=== PATIENT | female | born 1990 | race Caucasian/White ===

== ENCOUNTER 2016-08-22 13:27 | Emergency (ER) | payer MEDICAID ==
[~2016-08-22] VITALS: Ht 162.6 cm; Wt 74.8 kg
[~2016-08-22 13:27] MED LIST: ACET-789 PO; IBP600T1 PO; IBUP-1773 PO; PREN1TAB39 PO; PREN1TAB86 PO
[2016-08-22] MEDS ORDERED: NS IV 1000 ML 1,000 ML IV ONE (13:49)
[2016-08-22] MEDS ORDERED: PROMETHAZINE INJ 25 MG/ML (PHENERGAN) AMP IVP ONE (14:00)
[2016-08-22] MEDS ORDERED: fentaNYL INJECTION 100 MCG/2 ML AMP IVP ONE (14:00)
[2016-08-22] MEDS ORDERED: diphenhydrAMINE 50 MG/ML INJ (BENADRYL) IVP ONE (14:00)
--- NOTE | 2016-08-22 14:24 | ED Headache ---
General Chief Complaint: Head/Cervical Problems Stated Complaint: HEADACHE Source: patient Exam Limitations: no limitations History of Present Illness Time seen by provider: 13:47 Initial Comments This 25-year-old young lady presents to emergency room with complaint of severe headache in the frontal region and at the nape of the neck. Associated symptoms include nausea and vomiting and some light and sound sensitivity. She denies any vision changes. No fever or other signs or symptoms of acute infectious illness. She reports having a breast augmentation performed last which is healing up as expected. She has no symptoms at the surgical site. She has been taking hydrocodone and Flexeril over the past week for postoperative pain. She took one hydrocodone this morning but vomited shortly after. She then took Tylenol. She reports her pain is 9/10. This is the "worst headache I've ever had". She does not have a history of recurrent headaches or migraines. She is on control and states her last period was one week ago. She denies any focal neurologic deficits. Allergies and Home Medications Allergies Coded Allergies: No Known Drug Allergies (Unverified , 10/24/10) Home Medications Ibuprofen 600 Mg Tablet, 600 MG PO Q6H PRN for PAIN, #30 Prescribed by: HAZEL GUTIERREZ on 02/10/16 1717 Ondansetron 4 Mg Tab.rapdis, 4 MG SL Q4H PRN for NAUSEA/VOMITING-1ST LINE, #10 Prescribed by: DAE ASH on 08/22/16 1532 Vit W-Ca,Fe,FA(<1 mg) 1 Each Tablet, 1 EACH PO DAILY, (Reported) Constitutional: no symptoms reported Eyes: No Symptoms Reported Ears, Nose, Mouth, Throat: no symptoms reported Respiratory: no symptoms reported Cardiovascular: no symptoms reported Gastrointestinal: see HPI Genitourinary: no symptoms reported : No Musculoskeletal: no symptoms reported Skin: no symptoms reported Psychiatric/Neurological: See HPI Past Ngkrzhp-Iqqmdp-Cxqpce Hx Patient Social History Recent Foreign Travel: No Contact w/Someone Who Travel: No Recent Hopitalizations: No Seasonal Allergies Seasonal Allergies: No Surgeries HX Surgeries: Yes (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) Surgeries: Breast (breast augmentation with implants) Respiratory Hx Respiratory Disorders: No Cardiovascular Hx Cardiac Disorders: Yes (childhood murmur) Neurological Hx Neurological Disorders: No Reproductive System Hx Reproductive Disorders: No Genitourinary Hx Genitourinary Disorders: No Gastrointestinal Hx Gastrointestinal Disorders: Yes Musculoskeletal Hx Musculoskeletal Disorders: No Endocrine Hx Endocrine Disorders: No HEENT HX ENT Disorders: No Cancer Hx Cancer: No Psychosocial Hx Psychiatric Problems: No Integumentary HX Skin/Integumentary Disorder: No Blood Transfusions Hx Blood Disorders: No Family Medical History Significant Family History: Cancer, Diabetes Family Medial History: Congenital heart disease 19 MOTHER Diabetes mellitus 19 MOTHER Physical Exam Vital Signs Vital Sign - Last 12Hours 08/22/16 13:55 Temp 96.0 Pulse 70 Resp 16 B/P (MAP) 129/98 Pulse Ox 100 O2 Delivery Room Air Capillary Refill : General Appearance: WD/WN, no apparent distress HEENT: PERRL/EOMI, normal ENT inspection, TMs normal, pharynx normal Neck: supple, normal inspection Cardiovascular: regular rate, rhythm, no edema, no murmur Respiratory: lungs clear, normal breath sounds, no respiratory distress, no accessory muscle use Gastrointestinal: normal bowel sounds, non tender, soft Extremities: normal inspection, no pedal edema Psychiatric: alert, oriented x 3 Crainal Nerves: normal hearing, normal speech, PERRL Coordination/Gait: normal finger to nose, normal gait Motor/Sensory: no motor deficit, no sensory deficit Skin: normal color, warm/dry Progress/Results/Core Measures Results/Orders Lab Results Laboratory Tests Test 08/22/16 14:10 08/22/16 14:50 Range/Units White Blood Count 9.4 4.3-11.0 10^3/uL Red Blood Count 4.89 4.35-5.85 10^6/uL Hemoglobin 14.6 11.5-16.0 G/DL Hematocrit 43 35-52 % Mean Corpuscular Volume 88 80-99 FL Mean Corpuscular Hemoglobin 30 25-34 PG Mean Corpuscular Hemoglobin Concent 34 32-36 G/DL Red Cell Distribution Width 14.7 H 10.0-14.5 % Platelet Count 250 130-400 10^3/uL Mean Platelet Volume 10.3 7.4-10.4 FL Neutrophils (%) (Auto) 81 H 42-75 % Lymphocytes (%) (Auto) 15 12-44 % Monocytes (%) (Auto) 3 0-12 % Eosinophils (%) (Auto) 0 0-10 % Basophils (%) (Auto) 0 0-10 % Neutrophils # (Auto) 7.6 1.8-7.8 X 10^3 Lymphocytes # (Auto) 1.4 1.0-4.0 X 10^3 Monocytes # (Auto) 0.3 0.0-1.0 X 10^3 Eosinophils # (Auto) 0.0 0.0-0.3 10^3/uL Basophils # (Auto) 0.0 0.0-0.1 10^3/uL Sodium Level 139 135-145 MMOL/L Potassium Level 4.3 3.6-5.0 MMOL/L Chloride Level 103 98-107 MMOL/L Carbon Dioxide Level 27 21-32 MMOL/L Anion Gap 9 5-14 MMOL/L Blood Urea Nitrogen 9 7-18 MG/DL Creatinine 0.71 0.60-1.30 MG/DL Estimat Glomerular Filtration Rate > 60 BUN/Creatinine Ratio 13 Glucose Level 95 70-105 MG/DL Calcium Level 10.1 8.5-10.1 MG/DL Magnesium Level 2.1 1.8-2.4 MG/DL Total Bilirubin 0.3 0.1-1.0 MG/DL Aspartate Amino Transf (AST/SGOT) 30 5-34 U/L Alanine Aminotransferase (ALT/SGPT) 29 0-55 U/L Alkaline Phosphatase 77 40-136 U/L Total Protein 7.6 6.4-8.2 G/DL Albumin 4.3 3.2-4.5 G/DL Serum Test, Qualitative NEGATIVE NEGATIVE Urine Color YELLOW Urine Clarity SLIGHTLY CLOUDY Urine pH 8 5-9 Urine Specific [place] 1.010 L 1.016-1.022 Urine Protein NEGATIVE NEGATIVE Urine Glucose (UA) NEGATIVE NEGATIVE Urine Ketones NEGATIVE NEGATIVE Urine Nitrite NEGATIVE NEGATIVE Urine Bilirubin NEGATIVE NEGATIVE Urine Urobilinogen NORMAL NORMAL MG/DL Urine Leukocyte Esterase NEGATIVE NEGATIVE Urine RBC (Auto) NEGATIVE NEGATIVE Urine RBC NONE /HPF Urine WBC NONE /HPF Urine Squamous Epithelial Cells 5-10 /HPF Urine Crystals NONE /LPF Urine Bacteria NEGATIVE /HPF Urine Casts NONE /LPF Urine Mucus NEGATIVE /LPF Urine Culture Indicated NO My Orders Orders - DAE JUNIOR MD Cbc With Automated Diff (08/22/16 13:49) Comprehensive Metabolic Panel (08/22/16 13:49) Hcg,Qualitative Serum (08/22/16 13:49) Magnesium (08/22/16 13:49) Ua Culture If Indicated (08/22/16 13:49) Saline Lock/Iv-Start (08/22/16 13:49) Ct Head Wo (08/22/16 13:49) Ns Iv 1000 Ml (Sodium Chloride 0.9%) (08/22/16 13:49) Promethazine Injection (Phenergan Injec (08/22/16 14:00) Diphenhydramine Injection (Benadryl Inje (08/22/16 14:00) Fentanyl Injection (Sublimaze Injection (08/22/16 14:00) Ketorolac Injection (Toradol Injection) (08/22/16 15:30) Ondansetron Injection (Zofran Injectio (08/22/16 15:30) Medications Given in ED Current Medications Medications Dose Ordered Sig/Zay Route Start Time Stop Time Status Last Admin Dose Admin Diphenhydramine HCl 12.5 mg ONCE ONCE IVP 08/22/16 14:00 08/22/16 14:01 DC 08/22/16 14:09 12.5 MG Fentanyl Citrate 50 mcg ONCE ONCE IVP 08/22/16 14:00 08/22/16 14:01 DC 08/22/16 14:08 50 MCG Ketorolac Tromethamine 30 mg ONCE ONCE IVP 08/22/16 15:30 08/22/16 15:31 DC 08/22/16 15:26 30 MG Ondansetron HCl 8 mg ONCE ONCE IVP 08/22/16 15:30 08/22/16 15:31 DC 08/22/16 15:26 8 MG Promethazine HCl 12.5 mg ONCE ONCE IVP 08/22/16 14:00 08/22/16 14:01 DC 08/22/16 14:09 12.5 MG Sodium Chloride 1,000 ml @ 0 mls/hr Q0M ONCE IV 08/22/16 13:49 08/22/16 13:52 DC 08/22/16 14:10 1,000 MLS/HR Vital Signs/I&O Vital Sign - Last 12Hours 08/22/16 08/22/16 08/22/16 13:55 14:08 15:26 Temp 96.0 98.3 98.3 Pulse 70 Resp 16 B/P (MAP) 129/98 Pulse Ox 100 O2 Delivery Room Air Progress Note #1: Time: 14:24 Progress Note Patient is receiving fentanyl, Phenergan, and promethazine as initial treatment. Serum test is being performed. If negative, CT of the head will be performed. Progress Note #2: Time: 15:[address] head and labs are unremarkable. Patient reports her pain and nausea are rebounding. Zofran and Toradol are being administered. Progress Note #3: Time: 16:03 Progress Note Patient had significant improvement with Zofran and Toradol. She was tolerating oral water without difficulty. Diagnostic Imaging Diagonstic Imaging: CT Plain Films/CT/US/NM/MRI: head Comments CT head viewed by me and report reviewed. See report below: NAME: ANNIE GOLDBERG [facility] REC#: [id number] PT STATUS: REG ER : 1990 PHYSICIAN: DAE JUNIOR MD ADMIT DATE: 08/22/16/ER Signed Date of Exam: 08/22/16 CT HEAD WO PROCEDURE: CT head without contrast. TECHNIQUE: Multiple contiguous axial images were obtained through the brain without the use of intravenous contrast. INDICATION: Frontal and posterior headache. FINDINGS: There is no intracranial hemorrhage, edema, or mass effect. The brain parenchyma and bhatia/white matter differentiation are preserved. No hydrocephalus. No extra-axial fluid collection is seen. The calvarium, paranasal sinuses, and visualized portions of the orbits appear grossly unremarkable. IMPRESSION: Unremarkable exam. Dictated by: Dictated on workstation # [id number] Dict: 08/22/16 1500 Trans: 08/22/16 1512 Interpreted by: PEPE LOFTON MD Electronically signed by: PEPE OLFTON MD 08/22/16 1512 Departure Impression Impression: Primary Impression: Acute headache Qualified Codes: R51 - Headache Additional Impression: Nausea and vomiting Qualified Codes: R11.2 - Nausea with vomiting, unspecified Disposition: 01 HOME, SELF-CARE Condition: Improved Departure-Patient Inst. Referrals: JOHNNY HERNANDEZ MD (PCP/Family) Primary Care Physician Patient Instructions: Headache, Adult Add. Discharge Instructions: Drink plenty of clear liquids. Gradually advance your diet with small quantities of bland food as tolerated. You may take ibuprofen up to 600 mg every 6 hours as needed for pain. Add your hydrocodone as prescribed for pain not controlled by ibuprofen. Dissolve the Zofran (ondansetron) under the tongue every 4 hours as needed for nausea and vomiting. Return to emergency room if symptoms worsen. Rest in a quiet, calm, dark environment for the remainder of the day. All discharge instructions reviewed with patient and/or family. Voiced understanding. Scripts Ondansetron (Zofran Odt) 4 Mg Tab.rapdis 4 MG SL Q4H Y for NAUSEA/VOMITING-1ST LINE, #10 TAB Prov: DAE JUNIOR MD 08/22/16 DAE JUNIOR MD August 22, 2016 14:24
[2016-08-22 14:25] LABS: BASOPHILS % (AUTO) 0 % (0-10); EOSINOPHILS % (AUTO) 0 % (0-10); LYMPHOCYTES # (AUTO) 1.4 X 10^3 (1.0-4.0); LYMPHOCYTES % (AUTO) 15 % (12-44); MEAN CORPUSCULAR HEMOGLOBIN 30 PG (25-34); MEAN CORPUSCULAR HGB CONC 34 G/DL (32-36); MEAN CORPUSCULAR VOLUME 88 FL (80-99); MEAN PLATELET VOLUME 10.3 FL (7.4-10.4); MONOCYTES # (AUTO) 0.3 X 10^3 (0.0-1.0); MONOCYTES % (AUTO) 3 % (0-12); NEUTROPHILS # (AUTO) 7.6 X 10^3 (1.8-7.8); NEUTROPHILS % (AUTO) 81 % (42-75); PLATELET COUNT 250 10^3/uL (130-400); RED BLOOD COUNT 4.89 10^6/uL (4.35-5.85); RED CELL DISTRIBUTION WIDTH 14.7 % (10.0-14.5); WHITE BLOOD COUNT 9.4 10^3/uL (4.3-11.0)
[2016-08-22 14:46] LABS: ALANINE AMINOTRANSFERASE 29 U/L (0-55); ALBUMIN 4.3 G/DL (3.2-4.5); ANION GAP 9 MMOL/L (5-14); ASPARTATE AMINO TRANSFERASE 30 U/L (5-34); BILIRUBIN,TOTAL 0.3 MG/DL (0.1-1.0); BLOOD UREA NITROGEN 9 MG/DL (7-18); BUN/CREATININE RATIO 13; CALCIUM 10.1 MG/DL (8.5-10.1); CARBON DIOXIDE 27 MMOL/L (21-32); CHLORIDE 103 MMOL/L (98-107); CREATININE SERUM 0.71 MG/DL (0.60-1.30); GFR ESTIMATED > 60; GLUCOSE 95 MG/DL (70-105); MAGNESIUM 2.1 MG/DL (1.8-2.4); POTASSIUM 4.3 MMOL/L (3.6-5.0); SODIUM 139 MMOL/L (135-145); TOTAL PROTEIN 7.6 G/DL (6.4-8.2)
[2016-08-22 15:01] LABS: BILIRUBIN,URINE NEGATIVE (NEGATIVE); KETONES,URINE NEGATIVE (NEGATIVE); LEUKOCYTE ESTERASE ,URINE NEGATIVE (NEGATIVE); NITRITE,URINE NEGATIVE (NEGATIVE); PH,URINE 8 (5-9); PROTEIN,URINE NEGATIVE (NEGATIVE); UROBILINOGEN,URINE NORMAL (NORMAL)
--- NOTE | 2016-08-22 15:11 | Diagnostic Imaging Report ---
PROCEDURE: CT head without contrast. TECHNIQUE: Multiple contiguous axial images were obtained through the brain without the use of intravenous contrast. INDICATION: Frontal and posterior headache. FINDINGS: There is no intracranial hemorrhage, edema, or mass effect. The brain parenchyma and bhatia/white matter differentiation are preserved. No hydrocephalus. No extra-axial fluid collection is seen. The calvarium, paranasal sinuses, and visualized portions of the orbits appear grossly unremarkable. IMPRESSION: Unremarkable exam. Dictated by: Dictated on workstation # [id number]
[2016-08-22] MEDS ORDERED: KETOROLAC 30 MG/ML VIAL IVP ONE (15:30)
[2016-08-22] MEDS ORDERED: ONDANSETRON 4 MG/2 ML (SDV) Z0FRAN IVP ONE (15:30)
[2016-08-22] MEDS ORDERED: ONDA4TAB8 SL (15:32)
[2016-08-22 16:06] VITALS: BP 124/88
== END 2016-08-22 16:06 | disposition home or self-care (01) ==
LOC: EDUNIT# 13:27 → ER 13:31
DX: R51 Headache (principal); R11.2 Nausea with vomiting, unspecified; Z98.82 Breast implant status; Z98.890 Other specified postprocedural states
CPT/HCPCS: 36415; 70450; 80053; 81000; 83735; 84703; 85025; 96361; 96374; 96375

== ENCOUNTER 2017-04-03 15:39 | Emergency (ER) | payer MEDICAID ==
[~2017-04-03] VITALS: Ht 162.6 cm; Wt 72.6 kg
[~2017-04-03 15:39] MED LIST changes: +ONDA4TAB8 SL
[2017-04-03] MEDS ORDERED: AMOX500C2 PO ×2 (16:47→16:49)
[2017-04-03] MEDS ORDERED: D-ME118S33 PO (16:47)
--- NOTE | 2017-04-03 16:47 | ED Cough/URI ---
General Chief Complaint: Cough/Cold/Flu Symptoms Stated Complaint: CONGESTION,LT EAR PAIN Nursing Triage Note: PT CO OF OF HAVING COLD SYMPTOMS COUGH L SIDED EAR ACHE, SINUS PRESSURE, STATES TEETH HURT. DENIES FEVER. Source: patient Exam Limitations: no limitations History of Present Illness Time seen by provider: 16:43 Initial Comments To ER with left earache for 3 days, nasal congestion, upper dental pressure and pain affecting all of her maxillary teeth. No fever. Nonproductive cough. Timing/Duration: getting worse Severity/Quality: dry cough Associated Symptoms: cough, facial pain, fever/chills Allergies and Home Medications Allergies Coded Allergies: No Known Drug Allergies (Unverified , 10/24/10) Home Medications Amoxicillin 500 Mg Capsule, 1,000 MG PO TID, #21 Prescribed by: ASHKAN ORR on 04/03/17 1647 D-Methorphan Hb/P-Epd HCl/Bpm 118 Ml Syrup, 5 ML PO Q6H PRN for COUGH, #120 Prescribed by: ASHKAN ORR on 04/03/17 1647 Ibuprofen 600 Mg Tablet, 600 MG PO Q6H PRN for PAIN, #30 Prescribed by: HAZEL GUTIERREZ on 02/10/16 1717 Ondansetron 4 Mg Tab.rapdis, 4 MG SL Q4H PRN for NAUSEA/VOMITING-1ST LINE, #10 Prescribed by: DAE ASH on 08/22/16 1532 Vit W-Ca,Fe,FA(<1 mg) 1 Each Tablet, 1 EACH PO DAILY, (Reported) Constitutional: see HPI, No chills, No fever EENTM: see HPI, nose congestion Respiratory: see HPI, cough, No short of breath, No wheezing Cardiovascular: no symptoms reported Genitourinary: no symptoms reported Musculoskeletal: no symptoms reported Skin: no symptoms reported Psychiatric/Neurological: No Symptoms Reported Hematologic/Lymphatic: No Symptoms Reported Past Sqlhnxz-Btccex-Rhyaxo Hx Patient Social History Alcohol Use: Denies Use Recreational Drug Use: No Smoking Status: Never a Smoker Recent Foreign Travel: No Contact w/Someone Who Travel: No Recent Infectious Disease Expo: No Recent Hopitalizations: No Physical Abuse: No Sexual Abuse: No Seasonal Allergies Seasonal Allergies: No Surgeries History of Surgeries: Yes (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, BREAST AUGMENTATION) Surgeries: Breast Respiratory History of Respiratory Disorde: No Cardiovascular History of Cardiac Disorders: Yes (childhood murmur) Neurological History of Neurological Disord: No Reproductive System Hx Reproductive Disorders: No Gastrointestinal History of Gastrointestinal Di: Yes Musculoskeletal History of Musculoskeletal Dis: No Endocrine History of Endocrine Disorders: No Cancer History of Cancer: No Psychosocial History of Psychiatric Problem: No Suicide Risk Score: 0 Integumentary History of Skin or Integumenta: No Blood Transfusions History of Blood Disorders: No Family Medical History Significant Family History: Cancer, Diabetes Family Medial History: Congenital heart disease 19 MOTHER Diabetes mellitus 19 MOTHER Physical Exam Vital Signs Vital Sign - Last 12Hours 04/03/17 16:20 Temp 98.9 Pulse 73 Resp 18 B/P (MAP) 104/57 (73) Pulse Ox 97 Capillary Refill : Less Than 3 Seconds General Appearance: WD/WN, no apparent distress Eyes: Bilateral Eye Normal Inspection, Bilateral Eye PERRL, Bilateral Eye EOMI HEENT: PERRL/EOMI, normal ENT inspection, TMs normal, TM abnormal (L) ( erythematous and bulging), pharyngeal erythema (cobblestoning) Neck: non-tender, full range of motion Respiratory: normal breath sounds, no respiratory distress, no accessory muscle use Cardiovascular: regular rate, rhythm, no murmur Gastrointestinal: normal bowel sounds, non tender, soft Neurologic/Psychiatric: alert, normal mood/affect, oriented x 3 Skin: normal color, warm/dry Progress/Results/Core Measures Suspected Sepsis Recent Fever Within 48 Hours: No Infection Criteria Present: None New/Unexplained Altered Menta: No Sepsis Screen: No Definite Risk Sepsis Diagnosis: SIRS Temperature:98.9 Pulse: 73 Respiratory Rate: 18 Blood Pressure 104 /57 Mean: 73 Results/Orders Vital Signs/I&O Vital Sign - Last 12Hours 04/03/17 16:20 Temp 98.9 Pulse 73 Resp 18 B/P (MAP) 104/57 (73) Pulse Ox 97 Capillary Refill : Less Than 3 Seconds Blood Pressure Mean: 73 Departure Impression Impression: Primary Impression: Sinusitis Additional Impression: Left otitis media Disposition: 01 HOME, SELF-CARE Condition: Stable Departure-Patient Inst. Decision time for Depature: 16:45 Referrals: JOHNNY HERNANDEZ MD (PCP/Family) Primary Care Physician Patient Instructions: Ear Infections (Otitis Media), Sinusitis in Adults Add. Discharge Instructions: 1. Medication as directed 2. Return to ER for any concerns 3. All discharge instructions reviewed with patient and/or family. Voiced understanding. Scripts Amoxicillin (Amoxicillin) 500 Mg Capsule 500 MG PO TID, #21 CAP . Prov: ASHKAN ORR APRN 04/03/17 D-Methorphan Hb/P-Epd HCl/Bpm (Bromfed Dm Cough Syrup) 118 Ml Syrup 5 ML PO Q6H Y for COUGH, #120 ML Prov: ASHKAN ORR APRN 04/03/17 Work/School Note: Work Release Form Date Seen in the Emergency Department: Apr 03, 2017 Return to Work: Apr 05, 2017 ASHKAN ORR APRN Apr 03, 2017 16:47
[2017-04-03 16:52] VITALS: BP 104/57
== END 2017-04-03 16:52 | disposition home or self-care (01) ==
LOC: EDUNIT# 15:39 → ER 15:41
DX: H66.92 Otitis media, unspecified, left ear (principal); J32.9 Chronic sinusitis, unspecified
CPT/HCPCS: 99282

== ENCOUNTER 2019-02-28 22:15 | Emergency (ER) | payer MEDICAID ==
[~2019-02-28] VITALS: Ht 162 cm; Wt 68.0 kg
[~2019-02-28 22:15] MED LIST changes: +AMOX500C2 PO; +D-ME118S33 PO
[2019-02-28 22:38] LABS: BILIRUBIN,URINE NEGATIVE (NEGATIVE); CLARITY,URINE SL CLOUDY; COLOR,URINE YELLOW; GLUCOSE, URINE (UA) NEGATIVE (NEGATIVE); KETONES,URINE NEGATIVE (NEGATIVE); LEUKOCYTE ESTERASE ,URINE 1+ (NEGATIVE); NITRITE,URINE NEGATIVE (NEGATIVE); PH,URINE 6.5 (5-9); PROTEIN,URINE TRACE (NEGATIVE)
[2019-02-28 23:20] LABS: BACTERIA,URINE FEW /HPF; RBC,URINE TNTC /HPF; WBC,URINE TNTC /HPF
[2019-02-28] MEDS ORDERED: NS IV 1000 ML 1,000 ML IV ONE (23:35)
[2019-02-28 23:42] LABS: BASOPHILS % (AUTO) 0 % (0-10); EOSINOPHILS # (AUTO) 0.2 10^3/uL (0.0-0.3); EOSINOPHILS % (AUTO) 2 % (0-10); HEMATOCRIT 41 % (35-52); HEMOGLOBIN 14.1 G/DL (11.5-16.0); LYMPHOCYTES # (AUTO) 2.4 X 10^3 (1.0-4.0); LYMPHOCYTES % (AUTO) 28 % (12-44); MEAN CORPUSCULAR HEMOGLOBIN 33 PG (25-34); MEAN CORPUSCULAR HGB CONC 34 G/DL (32-36); MEAN CORPUSCULAR VOLUME 96 FL (80-99); MEAN PLATELET VOLUME 9.9 FL (7.4-10.4); MONOCYTES # (AUTO) 0.4 X 10^3 (0.0-1.0); MONOCYTES % (AUTO) 5 % (0-12); NEUTROPHILS # (AUTO) 5.8 X 10^3 (1.8-7.8); NEUTROPHILS % (AUTO) 65 % (42-75); PLATELET COUNT 224 10^3/uL (130-400); RED CELL DISTRIBUTION WIDTH 11.9 % (10.0-14.5); WHITE BLOOD COUNT 8.9 10^3/uL (4.3-11.0)
[2019-02-28] MEDS ORDERED: KETOROLAC 30 MG/ML VIAL IVP ONE (23:45)
[2019-02-28] MEDS ORDERED: cefTRIAXone FOR IV USE 1,000 MG in WATER (STERILE) FOR INJECTION 10 ML IV ONE (23:45)
[2019-02-28 23:55] LABS: ALANINE AMINOTRANSFERASE 11 U/L (0-55); ALBUMIN 4.3 GM/DL (3.2-4.5); ALKALINE PHOSPHATASE 68 U/L (40-136); BILIRUBIN,TOTAL 0.2 MG/DL (0.1-1.0); BUN/CREATININE RATIO 12; CALCIUM 9.5 MG/DL (8.5-10.1); CARBON DIOXIDE 26 MMOL/L (21-32); CHLORIDE 104 MMOL/L (98-107); CREATININE SERUM 0.91 MG/DL (0.60-1.30); GFR ESTIMATED > 60; GLUCOSE 81 MG/DL (70-105); POTASSIUM 3.8 MMOL/L (3.6-5.0); SODIUM 140 MMOL/L (135-145); TOTAL PROTEIN 6.9 GM/DL (6.4-8.2)
[2019-03-01] MEDS ORDERED: CEPH-507 PO (00:40)
--- NOTE | 2019-03-01 00:40 | ED GU-Female ---
General Chief Complaint: - Urinary Stated Complaint: ABD PRESSURE, LOWER BACK PAIN Nursing Triage Note: PT PRESENTS TO ED ROOM NINE C/O UNILATERAL FLANK PAIN TO THE LEFT SIDE AND DYSURIA THAT ONSET TWO WEEKS AGO, PT STATES SHE WAS SEEN AT THE [facility] AND PLACED ON PO BACTRIUM FOR A FEW DAYS, STATES HER SYMPTOMS IMPROVED FOR A SHORT TIME UNTIL THE MED WAS FINISHED, THEN SYPTOMS RETURNED BUT WORSE. PT VERBAIZISES MILD PAIN AND FEELING LIKE SHE NEVER COMPLETELY VOIDS DURING URINATION Nursing Sepsis Screen: No Definite Risk Source: patient Exam Limitations: no limitations History of Present Illness Date Seen by Provider: Feb 28, 2019 Time Seen by Provider: 22:20 Initial Comments This 28-year-old young lady presents to the emergency room with left flank and back pain associated with dysuria described as a feeling of incomplete voiding and pressure after urinating. She is afebrile. She was treated for urinary tr act infection with Bactrim about 3 weeks ago. The symptoms did improve briefly but then returned. She had also been treated for yeast infection. She denies and LMP was last week. She took Tylenol for her discomfort. She denies any vaginal symptoms. Allergies and Home Medications Allergies Coded Allergies: No Known Drug Allergies (Unverified , 10/24/10) Home Medications Amoxicillin 500 Mg Capsule, 500 MG PO TID . Prescribed by: ASHKAN ORR on 04/03/17 1649 Cephalexin 500 Mg Capsule, 500 MG PO QID Prescribed by: DAE ASH on 03/01/19 0040 D-Methorphan Hb/P-Epd HCl/Bpm 118 Ml Syrup, 5 ML PO Q6H PRN for COUGH Prescribed by: ASHKAN ORR on 04/03/17 1647 Ibuprofen 600 Mg Tablet, 600 MG PO Q6H PRN for PAIN Prescribed by: HAZEL GUTIERREZ on 02/10/16 1717 Ondansetron 4 Mg Tab.rapdis, 4 MG SL Q4H PRN for NAUSEA/VOMITING-1ST LINE Prescribed by: DAE ASH on 08/22/16 1532 Vit W-Ca,Fe,FA(<1 mg) 1 Each Tablet, 1 EACH PO DAILY, (Reported) Patient Home Medication List Home Medication List Reviewed: Yes Review of Systems Review of Systems Constitutional: no symptoms reported EENTM: no symptoms reported Respiratory: no symptoms reported Cardiovascular: no symptoms reported Gastrointestinal: see HPI Genitourinary: see HPI : No LMP: Feb 21, 2019 Musculoskeletal: no symptoms reported Skin: no symptoms reported Psychiatric/Neurological: No Symptoms Reported Endocrine: No Symptoms Reported Hematologic/Lymphatic: No Symptoms Reported Past Hbrbuuz-Sssckc-Woeqxm Hx Patient Social History Alcohol Use: Denies Use Recreational Drug Use: No Recent Foreign Travel: No Contact w/Someone Who Travel: No Recent Infectious Disease Expo: No Recent Hopitalizations: No Physical Abuse: No Sexual Abuse: No Mistreated: No Fear: No Immunizations Up To Date Tetanus Booster (TDap): Unknown PED Vaccines UTD: Yes Seasonal Allergies Seasonal Allergies: No Past Medical History Surgeries: Yes (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, BREAST AUGMENTATION) Breast Respiratory: No Cardiac: Yes (childhood murmur) Neurological: No : No Reproductive Disorders: No Genitourinary: Yes UTI (peds) Gastrointestinal: Yes Musculoskeletal: No Endocrine: No HEENT: No Cancer: No Psychosocial: No Integumentary: Yes (Acne) Blood Disorders: No Family Medical History Congenital heart disease 19 MOTHER Diabetes mellitus 19 MOTHER Cancer, Diabetes Physical Exam Vital Signs Vital Signs - First Documented 02/28/19 22:50 Temp 36.3 Pulse 72 Resp 20 B/P (MAP) 107/80 (89) Pulse Ox 99 O2 Delivery Room Air Capillary Refill : Less Than 3 Seconds Height, Weight, BMI Height: 5'4.00" Weight: 160lbs. 0.0oz. 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, no motor/sensory deficits, alert, normal mood/affect, oriented x 3 Skin: normal color, warm/dry Progress/Results/Core Measures Suspected Sepsis Recent Fever Within 48 Hours: No Infection Criteria Present: Suspected New Infection New/Unexplained Altered Menta: No Sepsis Screen: No Definite Risk SIRS Temperature: Pulse: 72 Respiratory Rate: 20 Laboratory Tests 02/28/19 23:00: White Blood Count 8.9 Blood Pressure 107 /80 Mean: 89 Laboratory Tests 02/28/19 23:00: Creatinine 0.91, Platelet Count 224, Total Bilirubin 0.2 Results/Orders Lab Results Laboratory Tests Test 02/28/19 22:35 02/28/19 23:00 Range/Units Urine Color YELLOW Urine Clarity SL CLOUDY Urine pH 6.5 5-9 Urine Specific Fluker 1.025 H 1.016-1.022 Urine Protein TRACE NEGATIVE Urine Glucose (UA) NEGATIVE NEGATIVE Urine Ketones NEGATIVE NEGATIVE Urine Nitrite NEGATIVE NEGATIVE Urine Bilirubin NEGATIVE NEGATIVE Urine Urobilinogen 0.2 < = 1.0 MG/DL Urine Leukocyte Esterase 1+ H NEGATIVE Urine RBC (Auto) 3+ H NEGATIVE Urine RBC TNTC H /HPF Urine WBC TNTC H /HPF Urine Crystals NONE /LPF Urine Bacteria FEW H /HPF Urine Casts NONE /LPF Urine Mucus NEGATIVE /LPF Urine Culture Indicated YES White Blood Count 8.9 4.3-11.0 10^3/uL Red Blood Count 4.31 L 4.35-5.85 10^6/uL Hemoglobin 14.1 11.5-16.0 G/DL Hematocrit 41 35-52 % Mean Corpuscular Volume 96 80-99 FL Mean Corpuscular Hemoglobin 33 25-34 PG Mean Corpuscular Hemoglobin Concent 34 32-36 G/DL Red Cell Distribution Width 11.9 10.0-14.5 % Platelet Count 224 130-400 10^3/uL Mean Platelet Volume 9.9 7.4-10.4 FL Neutrophils (%) (Auto) 65 42-75 % Lymphocytes (%) (Auto) 28 12-44 % Monocytes (%) (Auto) 5 0-12 % Eosinophils (%) (Auto) 2 0-10 % Basophils (%) (Auto) 0 0-10 % Neutrophils # (Auto) 5.8 1.8-7.8 X 10^3 Lymphocytes # (Auto) 2.4 1.0-4.0 X 10^3 Monocytes # (Auto) 0.4 0.0-1.0 X 10^3 Eosinophils # (Auto) 0.2 0.0-0.3 10^3/uL Basophils # (Auto) 0.0 0.0-0.1 10^3/uL Sodium Level 140 135-145 MMOL/L Potassium Level 3.8 3.6-5.0 MMOL/L Chloride Level 104 98-107 MMOL/L Carbon Dioxide Level 26 21-32 MMOL/L Anion Gap 10 5-14 MMOL/L Blood Urea Nitrogen 11 7-18 MG/DL Creatinine 0.91 0.60-1.30 MG/DL Estimat Glomerular Filtration Rate > 60 BUN/Creatinine Ratio 12 Glucose Level 81 70-105 MG/DL Calcium Level 9.5 8.5-10.1 MG/DL Corrected Calcium 9.3 8.5-10.1 MG/DL Total Bilirubin 0.2 0.1-1.0 MG/DL Aspartate Amino Transf (AST/SGOT) 13 5-34 U/L Alanine Aminotransferase (ALT/SGPT) 11 0-55 U/L Alkaline Phosphatase 68 40-136 U/L Total Protein 6.9 6.4-8.2 GM/DL Albumin 4.3 3.2-4.5 GM/DL My Orders Orders - DAE JUNIOR MD Ua Culture If Indicated (02/28/19 22:20) Urine Culture (02/28/19 22:35) Ct Abd/Pelvis Wo(Kidney Stone) (02/28/19 23:35) Ed Iv/Invasive Line Start (02/28/19 23:35) Cbc With Automated Diff (02/28/19 23:35) Comprehensive Metabolic Panel (02/28/19 23:35) Ns Iv 1000 Ml (Sodium Chloride 0.9%) (02/28/19 23:35) Ketorolac Injection (Toradol Injection) (02/28/19 23:45) Ceftriaxone For Iv Use (Rocephin For I (02/28/19 23:45) Medications Given in ED Vital Signs/I&O Capillary Refill : Less Than 3 Seconds Blood Pressure Mean: 89 POS Progress Note : Progress Note Urinary tract infection was detected in the urinalysis with a significant amount of blood. This combined with the presence of left CVA tenderness and left flank pain greatest suspicion for ureteral stone. I discussed risks and benefits of CT with patient. She elected to proceed with CT for further evaluation. No ureteral stones or other pathology was identified on the CT scan. Patient was treated with a liter of IV fluid and Rocephin. Toradol was given for pain. A prescription for Keflex was provided. Incidental CT findings were discussed with the patient. Also, since patient is a smoker, I advised her to follow-up to have a repeat urinalysis performed and ensure the blood clears. Diagnostic Imaging Diagonstic Imaging: CT Plain Films/CT/US/NM/MRI: abdomen, pelvis Comments CT abdomen and pelvis viewed by me and [employer] report reviewed. No evidence of pathology, specifically no ureteral stones. Departure Impression Primary Impression: Urinary tract infection Qualified Codes: N39.0 - Urinary tract infection, site not specified; R31.9 - Hematuria, unspecified Additional Impressions: Left flank pain Hepatomegaly Diverticulosis Microscopic hematuria Disposition: HOME, SELF-CARE Condition: Improved Departure-Patient Inst. Decision time for Depature: 00:37 Referrals: JOHNNY HERNANDEZ MD (PCP/Family) Primary Care Physician Patient Instructions: Blood in the Urine (Hematuria) in Adults, Urinary Tract Infection, Adult (DC) Add. Discharge Instructions: Follow-up with Dr. Hernandez as soon as possible. Complete the entire course of antibiotics as prescribed. You may take ibuprofen up to 600 mg every 6 hours and/or Tylenol (acetaminophen) up to 1000 mg every 6 hours as needed for pain. Drink plenty of clear liquids. Please discuss your CT findings with your primary care provider. Please also have your urine test today. Completely antibiotics to ensure the blood in your urine clears. Return to emergency room if you have worsening symptoms. All discharge instructions reviewed with patient and/or family. Voiced understanding. Scripts Cephalexin (Keflex) 500 Mg Capsule 500 MG PO QID, #28 CAP Prov: DAE JUNIOR MD 03/01/19 DAE JUNIOR MD Mar 01, 2019 00:40 POS
[2019-03-01 01:27] VITALS: BP 95/63
--- NOTE | 2019-03-01 06:45 | Diagnostic Imaging Report ---
PROCEDURE: CT urinary tract, rule out kidney stone. TECHNIQUE: Multiple contiguous axial images were obtained through the abdomen and pelvis without the use of intravenous contrast. Auto Exposure Controls were utilized during the CT exam to meet ALARA standards for radiation dose reduction. INDICATION: Generalized abdominal pain, frequent urination, back pain. COMPARISON: None. FINDINGS: Lung bases are clear. Solid organs, vascular structures and small bowel normal. There is some mild constipation. The appendix is normal. No renal calculi are seen. Urinary bladder is unremarkable. Uterus is intact. Osseous structures are age-appropriate. IMPRESSION: 1. Constipation without bowel obstruction. 2. No renal calculi, hydronephrosis or urinary bladder wall thickening. 3. Normal appendix. Dictated by: Dictated on workstation # [id number]
== END 2019-03-01 01:35 | disposition home or self-care (01) ==
LOC: EDUNIT# 22:15 → ER 22:17
DX: N39.0 Urinary tract infection, site not specified (principal); R16.0 Hepatomegaly, not elsewhere classified; K57.90 Diverticulosis of intestine, part unspecified, without perforation or abscess without bleeding; R31.29 Other microscopic hematuria; Z82.49 Family history of ischemic heart disease and other diseases of the circulatory system
CPT/HCPCS: 36415; 74176; 80053; 81000; 84703; 85025; 87077; 87088; 96361; 96374; 96375

== ENCOUNTER → 2019-08-02 | Outpatient (CLI) | payer MEDICAID, OTHER ==
[~2019-08-02] MED LIST changes: +CEPH-507 PO
--- NOTE | 2019-08-02 16:22 | Diagnostic Imaging Report ---
INDICATION: dating. EXAMINATION: OB ultrasound, transvaginal. FINDINGS: The uterus measures 9.5 x 4.4 x 5.7 cm. There is a very early intrauterine gestational sac with mean diameter of approximately 5 weeks 3 days gestation. No definite pole is seen at this time. Yolk sac is present. No robby-gestational sac hemorrhage is identified. Ovaries contain multiple follicles. There is a 2.3 cm cyst of left ovary, perhaps a corpus luteum. No free fluid is seen. IMPRESSION: Intrauterine gestational sac approximately 5 weeks 3 days gestational age. pole is not seen at this time, perhaps owing to early gestation. A follow-up ultrasound and/or correlation with serial beta hCG levels could be obtained to confirm viability. Dictated on workstation # [id number]
== END ==
LOC: RAD 12:16
PROVIDERS: ATTEND Family Medicine
DX: Z36.89 Encounter for other specified antenatal screening (principal); Z3A.01 Less than 8 weeks gestation of pregnancy
CPT/HCPCS: 76801; 76817

== ENCOUNTER → 2019-11-04 | Outpatient (CLI) | payer MEDICAID ==
--- NOTE | 2019-11-04 11:57 | Diagnostic Imaging Report ---
INDICATION: survey. TECHNIQUE: Multiple real-time grayscale images were obtained over the gravid uterus. COMPARISON: 08/02/2019. FINDINGS: There is a single live fetus in a variable presentation. heart rate was recorded at 129 bpm. Placenta is posterior and in a marginal position in relation to the internal cervical os. Amniotic fluid index is 15.2 cm. survey demonstrates kidneys, bladder and stomach to be unremarkable. The brain is unremarkable. There is a four-chamber heart. There is a three-vessel cord with normal insertion. spine is unremarkable. Biometrical measurements are as follows: Biparietal 4.34 cm, age 19 weeks 1 days. Head circumference 16.56 cm, age 19 weeks 2 days. Abdominal circumference 14.49 cm, age 19 weeks 6 days. Femur length 2.84 cm, age 18 weeks 5 days. Sonographic estimate age: 19 weeks 2 days. Sonographic estimated date of delivery: 03/28/2020. Estimated Weight: 284 gm (+/- 42 gm). LMP percentile: 2%. heart rate: 129 beats per minute. number: 1 of 1. IMPRESSION: Single live IUP 19 weeks gestational age showing normal interval growth when compared with prior exam. survey is unremarkable, although the posterior placenta is in a marginal location in relation to the internal cervical os. Follow-up would be recommended. Dictated by: Dictated on workstation # [id number]
== END ==
LOC: RAD 10:00
PROVIDERS: ATTEND Family Medicine
DX: Z36.89 Encounter for other specified antenatal screening (principal); Z3A.19 19 weeks gestation of pregnancy
CPT/HCPCS: 76805

== ENCOUNTER 2019-12-27 18:08 | Outpatient (CLI) | payer MEDICAID ==
[~2019-12-27] VITALS: Ht 162.6 cm; Wt 82.4 kg
--- NOTE | 2019-12-27 18:15 | NUR ---
ANNIE GOLDBERG presented to unit via from ED, accompanied by , with c/o DECREASED MOVEMENT. ANNIE GOLDBERG weighed and to bed. EFHM and TOCO applied, VS taken. ANNIE GOLDBERG oriented to bed controls, call light, TV, heat, and A/C controls.
[2019-12-27 18:30] VITALS: BP 102/55
--- NOTE | 2019-12-27 18:37 | NUR ---
DR. JOHN NOTIFIED OF PT ARRIVAL, GESTATIONAL AGE, C/O DECREASED FM, C/O PAIN TO RIGHT OF UMBILICUS THAT FEELS LIKE PRESSURE, ACTIVE FETUS WITH NO DECELERATIONS. ORDER FOR UA.
--- NOTE | 2019-12-27 18:40 | NUR ---
UP TO THE BATHROOM FOR CLEAN CATCH.
--- NOTE | 2019-12-27 18:55 | NUR ---
ACTIVE FETUS. AUDIBLE FM. NO DECELERATIONS.
[2019-12-27 18:57] LABS: BILIRUBIN,URINE NEGATIVE (NEGATIVE); CLARITY,URINE CLEAR; COLOR,URINE YELLOW; GLUCOSE, URINE (UA) NEGATIVE (NEGATIVE); KETONES,URINE TRACE (NEGATIVE); LEUKOCYTE ESTERASE ,URINE NEGATIVE (NEGATIVE); NITRITE,URINE NEGATIVE (NEGATIVE); PROTEIN,URINE NEGATIVE (NEGATIVE)
[2019-12-27 19:05] LABS: BACTERIA,URINE TRACE /HPF
[2019-12-27 19:06] LABS: AMORPHOUS SEDIMENT,UR FEW AMOR URATES /LPF
[2019-12-27 19:08] VITALS: BP 102/55
[2019-12-27 19:09] VITALS: BP 102/55
--- NOTE | 2019-12-27 19:15 | NUR ---
NO CTXS NOTED. NO DECELERATIONS. ACTIVE FETUS.
--- NOTE | 2019-12-27 19:20 | NUR ---
DR. JOHN NOTIFIED OF ACTIVE FETUS. AND UA RESULTS. ORDER FOR DISCHARGE.
[2019-12-27] MEDS ORDERED: PREN-142 PO (19:24)
--- NOTE | 2019-12-27 19:35 | NUR ---
D/C instructions given & explained, pt. verbalized understanding & signed, copy of D/C to pt. Pt. left WS ambulatory on own, to home via private vehicle.
--- NOTE | 2019-12-30 09:09 | Physician Query-Final Dx ---
Clinic Account Progress/Dx Physician Query: Please give diagnosis Please include # weeks gestation Date of Service Dec 27, 2019 at 18:08 ALEXIS DAVIDSON Dec 30, 2019 09:09
== END 2019-12-27 19:35 | disposition home or self-care (01) ==
LOC: LDRP 18:08 → WSo 18:08
PROVIDERS: ATTEND Family Medicine
DX: O36.8120 Decreased fetal movements, second trimester, not applicable or unspecified (principal); Z3A.26 26 weeks gestation of pregnancy
CPT/HCPCS: 81000; 99212

== ENCOUNTER 2020-03-27 02:59 | Inpatient (IN) | payer MEDICAID ==
[2020-03-27] VITALS (28 sets, daily range): BP systolic 90–128; BP diastolic 49–70
[~2020-03-27] VITALS: Ht 162.6 cm; Wt 90.4 kg
[~2020-03-27 02:59] MED LIST changes: +PREN-142 PO
--- NOTE | 2020-03-27 03:07 | NUR ---
ANNIE GOLDBERG presented to unit via wc from ED, accompanied by so, with c/o CONTRACTIONS. ANNIE GOLDBERG weighed, gowned, voided, and to bed. EFHM and TOCO applied, VS taken. ANNIE GOLDBERG oriented to bed controls, call light, TV, heat, and A/C controls.
[2020-03-27] MEDS ORDERED: MINERAL OIL CONCENTRATE 99.9% 15 ML UDC TOP PRN (03:30)
[2020-03-27] MEDS ORDERED: MEPIVACAINE (CARBOCAINE) 2% 50 ML VIAL INJ PRN (03:30)
[2020-03-27 03:49] LABS: BASOPHILS % (AUTO) 0 % (0-10); EOSINOPHILS # (AUTO) 0.1 10^3/uL (0.0-0.3); EOSINOPHILS % (AUTO) 1 % (0-10); HEMATOCRIT 40 % (35-52); HEMOGLOBIN 13.8 g/dL (11.5-16.0); LYMPHOCYTES # (AUTO) 2.1 10^3/uL (1.0-4.0); LYMPHOCYTES % (AUTO) 19 % (12-44); MEAN CORPUSCULAR HEMOGLOBIN 33 pg (25-34); MEAN CORPUSCULAR HGB CONC 35 g/dL (32-36); MEAN CORPUSCULAR VOLUME 94 fL (80-99); MEAN PLATELET VOLUME 10.2 fL (9.0-12.2); MONOCYTES # (AUTO) 0.6 10^3/uL (0.0-1.0); MONOCYTES % (AUTO) 6 % (0-12); NEUTROPHILS # (AUTO) 7.9 10^3/uL (1.8-7.8); NEUTROPHILS % (AUTO) 74 % (42-75); PLATELET COUNT 220 10^3/uL (130-400); WHITE BLOOD COUNT 10.7 10^3/uL (4.3-11.0)
[2020-03-27] MEDS: D5 LR IV SOLUTION 1,000 ML IV SCH ×2 (03:50→04:52)
[2020-03-27] MEDS ORDERED: fentaNYL 2 mcg/ml BUPIVA 0.125 100 ML ONE (03:51)
--- NOTE | 2020-03-27 04:07 | History & Physical-OB ---
OB - Chief Complaint & HPI Date/Time Date of Admission: Date of Admission: Mar 27, 2020 at 03:28 Date seen by a Provider: Mar 27, 2020 Time Seen by a Provider: 04:00 Chief Complaint/History OB-Reason for Admission/Chief: Onset of Labor Hx : 3 Hx Para: 2 Expected Date of Delivery: Apr 01, 2020 Gestational Age in Weeks: 39 Gestational Age in Days: 2 Admission Nurse Assessment Rev: Yes History of Labs GBS negative Allergies and Home Medications Allergies Coded Allergies: No Known Drug Allergies (Unverified , 10/24/10) Home Medications Vit No.124/Iron/FA 1 Each Tablet, 1 EACH PO DAILY, (Reported) Patient Home Medication List Home Medication List Reviewed: Yes OB - History Hx of Present Care: Yes Ultrasounds: Normal mid trimester US Obstetrical Complications: None Medical Complications: None Obstetrical History Hx Termination: No Hx Multiple Gestation: No Hx Stillbirth: No Hx Complication: No Hx Induced Hypertens: No Hx Maternal Gestational Diabet: No Delivery History Hx Dystocia: No Hx Large For Gestational Age I: No Hx Small for Gestational Age I: No Hx Section: No Hx Vaginal Delivery Post C-Sec: No Hx Blood Disorders: No Patient Past Medical History no chronic medical problems. Social History/Family History Recent Infectious Disease Expo: No Alcohol Use: Denies Use Recreational Drug Use: No 2nd Hand Smoke Exposure: No Immunizations Tetanus Booster (TDap): Unknown OB - Admission Exam Physical Exam Vitals: Vital Signs 03/27/20 03/27/20 03:23 03:28 Temp 36.2 Pulse 89 Resp 18 B/P (MAP) 112/66 (81) Pulse Ox 98 O2 Delivery Room Air HEENT: Moist Membranes Heart: Rhythm Normal Lungs: Clear Abdomen: Gravid Cervical Dilatation: 6cm Effacement: 75% Membranes: Intact Accelerations: Accelerations Present (on admit) Short Term Variability: Present Jail Variability: Minimal (3-5) Contractions on Admission: 6-10 Minutes Apart Intensity: Mild Labs Laboratory Tests Test 03/27/20 03:30 Range/Units White Blood Count 10.7 4.3-11.0 10^3/uL Red Blood Count 4.20 3.80-5.11 10^6/uL Hemoglobin 13.8 11.5-16.0 g/dL Hematocrit 40 35-52 % Mean Corpuscular Volume 94 80-99 fL Mean Corpuscular Hemoglobin 33 25-34 pg Mean Corpuscular Hemoglobin Concent 35 32-36 g/dL Red Cell Distribution Width 12.0 10.0-14.5 % Platelet Count 220 130-400 10^3/uL Mean Platelet Volume 10.2 9.0-12.2 fL Immature Granulocyte % (Auto) 0 % Neutrophils (%) (Auto) 74 42-75 % Lymphocytes (%) (Auto) 19 12-44 % Monocytes (%) (Auto) 6 0-12 % Eosinophils (%) (Auto) 1 0-10 % Basophils (%) (Auto) 0 0-10 % Neutrophils # (Auto) 7.9 H 1.8-7.8 10^3/uL Lymphocytes # (Auto) 2.1 1.0-4.0 10^3/uL Monocytes # (Auto) 0.6 0.0-1.0 10^3/uL Eosinophils # (Auto) 0.1 0.0-0.3 10^3/uL Basophils # (Auto) 0.0 0.0-0.1 10^3/uL Immature Granulocyte # (Auto) 0.0 0.0-0.1 10^3/uL OB - Assessment/Plan/Diagnosis Assessment Assessment: active labor Admission Dx IUP at 39w2d gestation in labor Admission Status: Inpatient Order (span 2 midnights) Reason for Inpatient Admission: L&D Plan Plan: Expectant Management Induction Method: AROM (following epidural) Other Plan -desires epidural JOHNNY HERNANDEZ MD Mar 27, 2020 04:07
--- NOTE | 2020-03-27 04:19 | NUR ---
J Reading COMPUTATIONAL SCIENTIST on unit for epidural.
--- NOTE | 2020-03-27 04:26 | NUR ---
Demi Iyer RN present in room with pt and J Reading APPRENTICE LINEMAN THIRD STEP during placement of epidural
[2020-03-27] MEDS ORDERED: NALOXONE 0.4 MG/ML 1 ML (NARCAN) VIAL IV PRN ×2 (04:45)
[2020-03-27] MEDS ORDERED: METOCLOPRAMIDE INJ 10 MG/2 ML (REGLAN) IV PRN (04:45)
[2020-03-27] MEDS ORDERED: diphenhydrAMINE 50 MG/ML INJ (BENADRYL) IV PRN (04:45)
[2020-03-27] MEDS ORDERED: ONDANSETRON 4 MG/2 ML (SDV) Z0FRAN IV PRN (04:45)
[2020-03-27] MEDS ORDERED: LACTATED RINGERS 1,000 ML IV SCH (04:45)
[2020-03-27] MEDS ORDERED: EPIDURAL (fentaNYL 2 MCG/ML BUPIVA 0.125%)100 ML BAG EPI SCH (04:45)
[2020-03-27] MEDS ORDERED: OXYTOCIN PRE-MIX DRIP 500 ML IV ONE ×2 (04:52→06:44)
[2020-03-27] MEDS ORDERED: OXYTOCIN PRE-MIX DRIP 500 ML IV SCH ×2 (05:00→06:45)
[2020-03-27] MEDS ORDERED: CATHETER FLUSH 10 ML SYR IV SCH ×2 (06:00→14:00)
--- NOTE | 2020-03-27 06:00 | NUR ---
0600: Pt. complete and +1 station. Feeling the urge to push. 0603: Dr. Garcia called with update on pt. 0607: Dr. Garcia in room. Pt. up in stirrups and bed broken down. 0612: Pt. pushing. 0616: Delivery of head and body. Viable female infant delivered by Dr. Garcia and placed on mom's chest. 0618: Cord cut by FOB. 0621: Placenta delivered. Pitocin turned wide open. 0623: Pt. remains in stirrups for repair of 1st degree, right side periurethral abrasion. 0630: Pericare provided and pt taken out of stirrups. Fundus massaged. Fundus is firm and 1 under umbilicus. Minimal bleeding noted. No clots expressed. 0645: Fundus massaged. Fundus is firm and 1 under umbilicus. Minimal bleeding noted. No clots expressed. 0700: Fundus massaged. Fundus is firm and 1 under umbilicus. Minimal bleeding noted. No clots expressed.
--- NOTE | 2020-03-27 06:41 | OB Labor & Delivery Record ---
L&D History Date of Service Date of Service: Mar 27, 2020 History Expected Date of Delivery: Apr 01, 2020 Gestational Age in Weeks: 39 Hx : 3 Hx Para: 3 Complications Events: Routine care Operative Indications (Cesarea: N/A-Vaginal Delivery Intrapartal Events: None L&D Stage1 Stage One Onset of Labor - Date: Mar 27, 2020 Onset of Labor - Time: 01:00 Monitors and Tracing Monitor Mode: Internal Heart Rate: 135 Monitor Accelerations: Uniform Monitor Decelerations: Variable Station: -2 Transformer Stock Clerk Variability: Average (6-10) Short Term Variability: Present Presentation: Vertex Vital Signs VS - Last 72 Hours, by Label 03/27/20 03/27/20 03/27/20 03/27/20 03:23 03:28 04:21 04:24 Temp 36.2 36.2 36.2 Pulse 89 89 89 98 Resp 18 18 18 18 B/P (MAP) 112/66 (81) 118/61 (80) Pulse Ox 98 98 98 98 O2 Delivery Room Air Room Air Room Air Room Air 03/27/20 03/27/20 03/27/20 03/27/20 04:27 04:30 04:31 04:34 Pulse 94 91 81 100 Resp 18 18 18 18 B/P (MAP) 112/59 (76) 108/57 (74) 110/58 (75) 109/59 (76) Pulse Ox 98 97 97 98 O2 Delivery Room Air Room Air Room Air Room Air 03/27/20 03/27/20 03/27/20 03/27/20 04:36 04:38 04:44 04:49 Pulse 85 90 96 87 Resp 18 18 18 18 B/P (MAP) 121/63 (82) 115/60 (78) 120/66 (84) 111/55 (73) Pulse Ox 98 98 98 92 O2 Delivery Room Air Room Air Room Air Room Air 03/27/20 03/27/20 03/27/20 03/27/20 04:54 04:59 05:15 05:30 Temp 37.1 Pulse 85 83 81 73 Resp 18 18 18 18 B/P (MAP) 109/57 (74) 109/57 (74) 107/55 (72) 107/55 (72) Pulse Ox 97 96 96 93 O2 Delivery Room Air Room Air Room Air Room Air 03/27/20 03/27/20 05:45 06:00 Pulse 78 87 Resp 18 18 B/P (MAP) 100/57 (71) 100/57 (71) Pulse Ox 94 95 O2 Delivery Room Air Room Air Signs of Distress by FHT Signs of Distress no Rupture of Membranes Spontaneous Ruture of Membrane: No Amniotic Membrane Rupture Time: 0446 Amniotic Membrane Fluid Desc.: Yellow Induction/Anesthesia Epidural Cath Placement - Time: 0430 L&D Stage2 Stage Two Stage II Date: Mar 27, 2020 Stage II Time: 06:16 Monitors and Tracing Monitor Mode: Internal Heart Rate: 135 Monitor Accelerations: Uniform Monitor Decelerations: Variable Transformer Stock Clerk Variability: Average (6-10) Short Term Variability: Present Position: Left Occiput Anterior Presentation: Vertex Signs of Distress by FHT Signs of Distress no Cord Descript/Complications Cord Vessel Description: 3 Vessels Delivery Type Infant Delivery Method: Spontaneous Vaginal Anterior Shoulder: Left Episiotomy/Perineal Laceration Laceraction(s)/Extensions: Yes Episiotomy Description: Periurethral Extnsion/lac (Left) Sutures Used: Vicryl Condition of Delivery 1 minute Comment: 8 5 minute Comment: 9 Condition of Infant Condition of Infant: Living Exam: No Observed Abnormalities Resuscitation Resuscitation: N/A - Spontaneous Resp L&D Stage3 Stage Three Stage III Date: Mar 27, 2020 Stage III Time: 06:21 Pictocin Pitocin Administration mu/min: 2 Pitocin ml/hr: 2 Placenta Delivery Placenta Delivery: Spontaneous Delivery Summary Summary Estimated blood loss (mL): 250 Condition of Delivery Examined: Cervix Examined Post Hemorrhage: No Intervention Required none JOHNNY HERNANDEZ MD Mar 27, 2020 06:41
[2020-03-27] MEDS ORDERED: MEASLES,MUMPS,RUBELLA 1 EA INJ SQ ONE (06:45)
[2020-03-27] MEDS ORDERED: TETANUS,DIPTH,PERTUSS P/F (BOOSTRIX) 0.5 ML VIAL IM ONE (06:45)
[2020-03-27] MEDS ORDERED: BENZOCAINE/MENTHOL (DERMOPLAST) 60 ML CAN TP PRN (06:45)
[2020-03-27] MEDS ORDERED: WITCH HAZEL(TUCKS) 40 EA JAR TOP PRN (06:45)
[2020-03-27] MEDS: ACETAMINOPHEN 500 MG TAB (TYLENOL) PO SCH ×2 (15:01→23:09)
[2020-03-27] MEDS: PRENATAL VITAMIN 1 EA TAB PO SCH (15:01)
[2020-03-27] MEDS: DOCUSATE SODIUM 100 MG (COLACE) CAP PO SCH ×2 (15:01→20:02)
[2020-03-27] MEDS: IBUPROFEN 600 MG (MOTRIN) TAB PO SCH ×2 (15:01→20:02)
[2020-03-28 00:11] VITALS: BP 98/54
[2020-03-28] MEDS: ACETAMINOPHEN 500 MG TAB (TYLENOL) PO SCH ×2 (00:11→08:53)
[2020-03-28] MEDS: IBUPROFEN 600 MG (MOTRIN) TAB PO SCH ×2 (01:40→08:53)
[2020-03-28 05:00] VITALS: BP 100/59
--- NOTE | 2020-03-28 05:02 | Anesthesia-Regional Post-Op ---
Regional Patient Condition Mental Status: Alert, Oriented x3 Circulation: Same as Pre-Op Headache: Absent Sensation: Full Recovery Motor Block: Absent Post Op Complications Complications None Follow Up Care/Instructions Patient Instructions None needed. Anesthesia/Patient Condition Patient is doing well, no complaints, stable vital signs, no apparent adverse anesthesia problems. No complications reported per nursing. DESIRAE FRANCO CRNA Mar 28, 2020 05:01
[2020-03-28 06:13] LABS: BASOPHILS % (AUTO) 0 % (0-10); EOSINOPHILS # (AUTO) 0.3 10^3/uL (0.0-0.3); EOSINOPHILS % (AUTO) 3 % (0-10); HEMATOCRIT 36 % (35-52); HEMOGLOBIN 12.3 g/dL (11.5-16.0); LYMPHOCYTES # (AUTO) 3.3 10^3/uL (1.0-4.0); LYMPHOCYTES % (AUTO) 37 % (12-44); MEAN CORPUSCULAR HEMOGLOBIN 33 pg (25-34); MEAN CORPUSCULAR HGB CONC 34 g/dL (32-36); MEAN CORPUSCULAR VOLUME 96 fL (80-99); MEAN PLATELET VOLUME 9.9 fL (9.0-12.2); MONOCYTES # (AUTO) 0.5 10^3/uL (0.0-1.0); MONOCYTES % (AUTO) 5 % (0-12); NEUTROPHILS % (AUTO) 55 % (42-75); PLATELET COUNT 162 10^3/uL (130-400); WHITE BLOOD COUNT 9.1 10^3/uL (4.3-11.0)
--- NOTE | 2020-03-28 06:49 | Discharge Summary ---
Diagnosis/Chief Complaint Date of Admission Mar 27, 2020 at 03:28 Date of Discharge March 28, 2020 Discharge Date: Mar 28, 2020 Discharge Time: 10:00 Admission Diagnosis Admission Diagnosis 1. Intrauterine at term 39 weeks gestation Discharge Diagnosis 1. 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 She was noted to be at 39 weeks 2 days gestation upon presentation. Dilation on presentation 6 cm with her membranes intact. Discharge Summary-OBS Procedures 1. Epidural per anesthesia 2. Spontaneous vaginal delivery 3. 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 She received epidural per anesthesia and tolerated well. Once epidural in place she underwent amniotomy and there was slight yellow tinge fluid noted. Strip however remained reactive. Once the completion she to push and delivered after to contractions a term viable female. Infant received Apgars of 8 at 1 minute and 9 at 5 minutes. Following delivery patient underwent routine care orders. She had no complications during the remainder of hospital stay. She was noted to have no significant vaginal bleeding or clotting. Her hemoglobin in the morning of was 12.3 compared to 13.8 on admission. She was noted to have no shortness of breath or leg pain. She was felt ready for dismissal in the morning of March 28, 2020. She will follow up in 6 weeks Pending Labs Laboratory Tests 03/28/20 06:06: White Blood Count 9.1, Red Blood Count 3.78, Hemoglobin 12.3, Hematocrit 36, Mean Corpuscular Volume 96, Mean Corpuscular Hemoglobin 33, Mean Corpuscular Hemoglobin Concent 34, Red Cell Distribution Width 12.2, Platelet Count 162, Mean Platelet Volume 9.9, Immature Granulocyte % (Auto) 0, Neutrophils (%) (Auto) 55, Lymphocytes (%) (Auto) 37, Monocytes (%) (Auto) 5, Eosinophils (%) (Auto) 3, Basophils (%) (Auto) 0, Neutrophils # (Auto) 5.0, Lymphocytes # (Auto) 3.3, Monocytes # (Auto) 0.5, Eosinophils # (Auto) 0.3, Basophils # (Auto) 0.0, Immature Granulocyte # (Auto) 0.0 Discharge Instructions to patient/family Please see electronic discharge instructions given to patient. Discharge Medications Reviewed and agree with Discharge Medication list on patient's Discharge Instruction sheet Clinical Quality Measures DVT/VTE Risk/Contraindication: Risk Factor Score Per Nursin RFS Level Per Nursing on Admit: 2=Moderate JOHNNY HERNANDEZ MD Mar 28, 2020 06:49
--- NOTE | 2020-03-28 06:50 | Discharge Inst-Women's Service ---
Discharge Inst-Women's Serv Depart Medication/Instructions New, Converted or Re-Newed RX: Other Instructions May take ibuprofen [id number] 200 mg tablets at 2 or 3 tablets every 6 hours if needed for uterine cramping. Problems Reviewed?: Yes Consults/Follow Up Additional Follow Up: Yes (with Dr. Hernandez in 6 weeks) Activity Activity: Activity as Tolerated Driving Instructions: No Driving for 1 Week Nothing Inside Vagina: No [place] (for 6 weeks) Diet Discharge Diet: Regular Diet Return to The Hospital For: as below Symptoms to Report to : Bleeding Excessive, Fever Over 101 Degrees F, Vaginal Discharge Foul For Any Problems or Questions: Contact Your Physician JOHNNY HERNANDEZ MD Mar 28, 2020 06:50
[2020-03-28 08:00] VITALS: BP 105/55
[2020-03-28] MEDS: DOCUSATE SODIUM 100 MG (COLACE) CAP PO SCH (08:53)
[2020-03-28] MEDS: PRENATAL VITAMIN 1 EA TAB PO SCH (08:53)
== END 2020-03-28 11:15 | disposition home or self-care (01) | DRG 807 ==
LOC: WSo 02:59 → LDRP 03:01 → WSo 03:27 → LDRP 03:28
PROVIDERS: ADMIT Family Medicine; ATTEND Family Medicine
PROC: 10E0XZZ Delivery of Products of Conception, External Approach (ICD-10-PCS; principal; 2020-03-27)
PROC: 0UQMXZZ Repair Vulva, External Approach (ICD-10-PCS; 2020-03-27)
DX: O71.82 Other specified trauma to perineum and vulva (principal); Z37.0 Single live birth; Z3A.39 39 weeks gestation of pregnancy; Z23 Encounter for immunization
CPT/HCPCS: 36415; 85025; 86850; 86900; 86901; 90707; 90715; 99212